=== PATIENT | female | born 2000 | race Two or more races ===

== ENCOUNTER 2022-06-15 23:43 | Emergency (ER) | payer MEDICAID ==
[~2022-06-15] VITALS: Ht 162.6 cm; Wt 58.6 kg
[2022-06-16 02:15] LABS: Basophils # (auto) 0 10 ^3/uL (0-0.2); Basophils % (auto) 0.4 % (0.0-2.0); Eosinophils # (auto) 0 10 ^3/uL (0-0.8); Hematocrit 34.7 % (36.0-46.0); Lymphocytes # (auto) 0.8 10 ^3/uL (0.4-5.4); Lymphocytes % (auto) 9.1 % (10.0-50.0); Mean Corpuscular Hemoglobin 28.2 pg (28.0-32.0); Mean Corpuscular Hgb Conc. 34.5 g/dL (32.0-36.0); Mean Corpuscular Volume 81.8 fL (80.0-100.0); Monocytes # (auto) 1.2 10 ^3/uL (0-1.3); Monocytes % (auto) 12.9 % (0.0-12.0); Neutrophils % (auto) 77.6 % (37.0-80.0); Red Blood Cells 4.24 10^6/uL (4.0-5.20); Red Cell Distribution Width 14.2 % (11.8-14.3)
[2022-06-16 02:35] LABS: Albumin 2.9 g/dL (3.4-5.0); BUN/Creatinine Ratio 9.1; Calcium 8.2 mg/dL (8.5-10.1); Potassium 3.4 mmol/L (3.5-5.1)
[2022-06-16 02:43] LABS: Bilirubin, Total 0.2 mg/dL (0.2-1.0); Total Protein 6.9 g/dL (6.4-8.2)
[2022-06-16 02:58] LABS: Urine Bacteria FEW /hpf (None Seen); Urine Blood Negative /uL (Negative); Urine Specific Gravity 1.019 (1.001-1.035); Urine WBC 26 /hpf (0 - 5)
[2022-06-16] MEDS ORDERED: NITR-87 PO (06:54)
[2022-06-16] MEDS ORDERED: NITROFURANTOIN 100 mg CAP PO ONE (07:00)
[2022-06-16 08:05] VITALS: BP 97/61
== END 2022-06-16 08:16 | disposition home or self-care (01) ==
LOC: ER 23:43
DX: O23.42 Unspecified infection of urinary tract in pregnancy, second trimester (principal); N39.0 Urinary tract infection, site not specified; Z3A.15 15 weeks gestation of pregnancy
CPT/HCPCS: 36415; 76805; 80053; 81001; 84702; 85025

== ENCOUNTER 2024-06-29 02:41 | Emergency (ER) | payer MEDICAID ==
[~2024-06-29] VITALS: Ht 165.1 cm; Wt 68.8 kg
[~2024-06-29 02:41] MED LIST: NITR-87 PO
[2024-06-29] MEDS: ACETAMINOPHEN 325 MG TAB PO ONE (03:03)
[2024-06-29 03:13] VITALS: BP 131/69; PULSE 120; RESP 14; O2SAT 97
[2024-06-29] MEDS: IBUPROFEN 600 MG TAB PO ONE (03:48)
[2024-06-29] MEDS ORDERED: IBUP-1456 PO (05:08)
[2024-06-29] MEDS ORDERED: ZOFR4T PO (05:08)
[2024-06-29 05:15] VITALS: TEMP 98.9
== END 2024-06-29 05:20 | disposition home or self-care (01) ==
LOC: ER 02:41
DX: B34.9 Viral infection, unspecified (principal)